=== PATIENT | female | born 2000 | race Caucasian/White ===

== ENCOUNTER 2021-08-27 19:40 | Emergency (ER) | payer OTHER, SELFPAY ==
[2021-08-27] VITALS (10 sets, daily range): BP systolic 137–158; BP diastolic 78–99; PULSE 93–116; RESP 16–27; TEMP 36.8; O2SAT 97–100
--- NOTE | 2021-08-27 19:47 | DI.RAD.S_ITS ---
PROCEDURE: XR CHEST 1V INDICATIONS: chest pain TECHNIQUE: One view of the chest was acquired. COMPARISON: None. FINDINGS: Surgical changes and devices: None. Lungs and pleura: Lungs are clear. No pleural effusions or pneumothorax. Mediastinum: Mediastinal contours appear normal. Heart size is normal. Bones and chest wall: No suspicious bony lesions. Overlying soft tissues appear unremarkable. IMPRESSION: No acute cardiopulmonary pathology. Dictated by: Richard Carlos M.D. on 08/27/2021 at 19:57 Approved by: Richard Carlos M.D. on 08/27/2021 at 19:57
[2021-08-27 20:35] LABS: Add Manual Diff / Slide Review NO; Basophils Absolute Auto 100 /uL (0-100); Basophils Percent Auto 0.5 % (0-2); Eosinophils Absolute Auto 200 /uL (0-450); Eosinophils Percent Auto 1.5 % (2-4); Hematocrit 39.7 % (36-46); Hemoglobin 14.1 g/dL (12.0-16.0); Lymphocytes Absolute Auto 2700 /uL (1100-4500); Lymphocytes Percent Auto 23.5 % (25-40); Mean Corpuscular HGB Conc 35.5 % (30-36); Mean Corpuscular Hemoglobin 27.4 PG (26-34); Mean Corpuscular Volume 77.2 fL (80-100); Monocytes Absolute Auto 800 /uL (0-900); Monocytes Percent Auto 7.3 % (3-14); Neutrophils Absolute Auto 7600 /uL (1500-7000); Neutrophils Percent Auto 67.2 % (50-75); Platelet Count 419 X10^3/uL (150-400); Red Blood Cell Count 5.14 X10^6/uL (4.0-5.2); Red Cell Distribution Width 14.3 % (11.6-14.8); White Blood Cell Count 11.4 X10^3/uL (4.5-11.0)
[2021-08-27 20:48] LABS: Alanine Aminotransferase 41 IU/L (<35); Albumin 4.8 g/dL (3.5-5.0); Albumin Globulin Ratio 1.4 (1.0-2.8); Alkaline Phosphatase 64 U/L (38-126); Aspartate Aminotransferase 34 IU/L (14-36); BUN Creatinine Ratio 14.7 (6-22); Bilirubin Total 0.6 mg/dL (0.2-1.3); Blood Urea Nitrogen 10 mg/dL (7-17); Calcium 9.5 mg/dL (8.4-10.2); Carbon Dioxide 27 mmol/L (22-32); Chloride 103 mmol/L (98-107); Creatine Kinase 87 U/L (30-135); Estimated Glomerular Filt Rate > 60 mL/min (>60); Globulin 3.4 g/dL (1.7-4.1); Glucose 105 mg/dL (70-100); HEMOLYSIS < 15 (0-50); Lipase 127 U/L (23-300); Sodium 138 mmol/L (137-145); Total Protein 8.2 g/dL (6.3-8.2)
[2021-08-27 20:59] LABS: Troponin I < 0.012 ng/mL (0.01-0.034)
[2021-08-27] MEDS: SODIUM CHLORIDE 0.9% 1,000 ML 1000 ML IV ×2 (21:25→23:41)
--- NOTE | 2021-08-27 22:21 | ED.GENADULT ---
HPI - General Adult General Chief complaint: Syncope Stated complaint: Passed out, feeling light headed Time Seen by Provider: 08/27/21 21:01 Source: patient Mode of arrival: Ambulatory History of Present Illness HPI narrative: 21-year-old woman with a history of hypertension has been having self-described random dizzy spells over the last 2 days. She has had no fevers, cough, chills, abdominal pain, vomiting, diarrhea. These are not associated with vision changes or headache. She notes that she does have an abscessed wisdom tooth and that is been causing her some pain but she has been able to eat and drink normally. This afternoon she had a spell where she was particularly dizzy, she got down on the floor to make sure she did not fall and believes she had a brief syncopal episode. She describes no chest pain, palpitations no lower extremity edema. She has a baby that is 1-year-old and has just recently resumed normal menses last month does not feel was particularly heavy. Related Data Home Medications Medication Instructions Recorded Confirmed lisinopril 20 mg tablet 20 mg PO DAILY 08/27/21 08/27/21 Allergies Allergy/AdvReac Type Severity Reaction Status Date / Time No Known Drug Allergies Allergy Verified 08/27/21 19:46 Review of Systems Review of Systems Narrative: Remainder of complete review of systems is otherwise unremarkable except for that included in the HPI. Patient History Social History Smoking Status: Never smoker Smoking Status: Never smoker Exam Initial Vital Signs Initial Vital Signs: Vital Signs Temperature 98.3 F 08/27/21 19:43 Pulse Rate 116 H 08/27/21 19:43 Respiratory Rate 18 08/27/21 19:43 Blood Pressure 155/99 H 08/27/21 19:43 Pulse Oximetry 99 08/27/21 19:43 Oxygen Delivery Method 08/27/21 19:43 General: Healthy appearing, in no acute distress. Able to give a complete and coherent history. Well-nourished well-developed. Tachycardic at rest with heart rate 108 laying flat and going up to 140 simply standing up. HEENT: Moist mucous membranes, normal sclera with reactive pupils, Neck: No JVD, supple Respiratory: Lungs are clear to auscultation, no wheezing no rales no rhonchi. Full and symmetrical air movement Cardiac: Mild tachycardia with otherwise Regular rate and rhythm no murmurs no bruits Abdomen: Soft, nontender, good bowel tones, no flank pain Skin: Warm and dry, no rashes Neurologic: Grossly neurologically intact with no obvious asymmetries or abnormalities Extremities: No trauma, well perfused Psych: Cooperative, appropriate insight and affect Course Orders Ordered: ED Orders 08/27/21 19:47 XR chest 1V Stat EKG-12 Lead Stat 08/27/21 20:18 Complete Blood Count AUTO DIFF Stat Comprehensive Metabolic Panel Stat Lipase Stat Magnesium Stat Troponin & CK Cardiac Panel Stat Discontinued Medications Sodium Chloride (Normal Saline 0.9%) 1,000 mls @ 1,000 mls/hr IV BOLUS ONE Stop: 08/27/21 22:01 Last Infusion: 08/27/21 23:41 Dose: 0 mls/hr Documented By: Admin: 08/27/21 21:25 Dose: 1,000 mls/hr Documented By: OLEG Sodium Chloride (Normal Saline 0.9%) 1,000 mls @ 1,000 mls/hr IV BOLUS ONE Stop: 08/27/21 23:29 Last Admin: 08/27/21 23:41 Dose: 1,000 mls/hr Documented By: JERRICA Vital Signs Vital signs: Vital Signs - 8 hr 08/27/21 19:43 08/27/21 20:39 08/27/21 20:40 Temperature 98.3 F Pulse Rate 116 H 98 H 93 H Respiratory Rate 18 18 Blood Pressure 155/99 H Pulse Oximetry 99 98 98 Oxygen Delivery Method Room Air 08/27/21 20:41 Temperature Pulse Rate Respiratory Rate Blood Pressure 145/85 H Pulse Oximetry Oxygen Delivery Method Medical Decision Making Lab Data Result diagrams: 08/27/21 20:18 08/27/21 20:18 Labs: Lab Results 08/27/21 08/27/21 Range/Units 20:18 20:18 WBC 11.4 H (4.5-11.0) X10^3/uL RBC 5.14 (4.0-5.2) X10^6/uL Hgb 14.1 (12.0-16.0) g/dL Hct 39.7 (36-46) % MCV 77.2 L (80-100) fL MCH 27.4 (26-34) PG MCHC 35.5 (30-36) % RDW 14.3 (11.6-14.8) % Plt Count 419 H (150-400) X10^3/uL Neut % (Auto) 67.2 (50-75) % Lymph % (Auto) 23.5 L (25-40) % [place] % (Auto) 7.3 (3-14) % Eos % (Auto) 1.5 L (2-4) % Baso % (Auto) 0.5 (0-2) % Neut # (Auto) 7600 H (9288-6097) /uL Lymph # (Auto) 2700 (0839-6984) /uL [place] # (Auto) 800 (0-900) /uL Eos # (Auto) 200 (0-450) /uL Baso # (Auto) 100 (0-100) /uL Sodium 138 (137-145) mmol/L Potassium 4.0 (3.4-5.1) mmol/L Chloride 103 (98-107) mmol/L Carbon Dioxide 27 (22-32) mmol/L BUN 10 (7-17) mg/dL Creatinine 0.68 (0.52-1.04) mg/dL Estimated GFR > 60 (>60) mL/min BUN/Creatinine Ratio 14.7 (6-22) Glucose 105 H (70-100) mg/dL Calcium 9.5 (8.4-10.2) mg/dL Magnesium 2.0 (1.6-2.3) mg/dL Total Bilirubin 0.6 (0.2-1.3) mg/dL AST 34 (14-36) IU/L ALT 41 H (<35) IU/L Alkaline Phosphatase 64 (38-126) U/L Total Creatine Kinase 87 (30-135) U/L CK-MB (CK-2) TNP CK-MB (CK-2) Rel Index TNP Troponin I < 0.012 (0.01-0.034) ng/mL Total Protein 8.2 (6.3-8.2) g/dL Albumin 4.8 (3.5-5.0) g/dL Globulin 3.4 (1.7-4.1) g/dL Albumin/Globulin Ratio 1.4 (1.0-2.8) Lipase 127 (23-300) U/L Point of Care Testing Test Results Negative Urine Dip Bedside Urine Glucose Negative Bedside Urine Bilirubin - Negative Bedside Urine Ketone - Negative Urine Specific [place] 1.005 Bedside Urine Occult Blood - Negative Bedside Urine pH 7.0 Bedside Urine Protein - Negative Bedside Urine Urobilinogen - Negative Bedside Urine Nitrite - Negative Bedside Urine Leukocytes - Negative Esterase Point of care testing: Point of Care Testing Test Results Negative Urine Dip Bedside Urine Glucose Negative Bedside Urine Bilirubin - Negative Bedside Urine Ketone - Negative Urine Specific [place] 1.005 Bedside Urine Occult Blood - Negative Bedside Urine pH 7.0 Bedside Urine Protein - Negative Bedside Urine Urobilinogen - Negative Bedside Urine Nitrite - Negative Bedside Urine Leukocytes - Negative Esterase MDM Narrative Medical decision making narrative: 21-year-old woman with orthostatic hypotension uncertain etiology. She has not had any obvious significant losses and has been eating and drinking. No obvious clinical signs of infection. Lab work is reassuring without evidence of significant anemia or kidney dysfunction. She feel significantly better after 2 L fluid. At this point I do not suspect sepsis, COVID, , cardiac syncope, acute coronary syndrome, intra-abdominal infection. All of this is reviewed with her and at this time she is safe for home discharge. Encouraged her to continue making sure she is drinking plenty of fluids on a regular basis. Discharge Plan Departure Patient Disposition: Home Clinical Impression: Syncope due to orthostatic hypotension Instructions: DI for Syncope in Adults (Fainting), DI for Dehydration -- Adult Activity Restrictions/Additional Instructions: Thank you for coming in this evening You seem have significant change in heart rate and blood pressure going from lying down to standing up. We frequently see this in people who were significantly dehydrated. You have improved significantly with 2 L of fluid. I do not see any signs of severe dehydration or kidney dysfunction. There is no evidence of acute bacterial infection.. You are not . At this time, I would recommend that you make a point of drinking plenty of fluid, he should be drinking enough fluid that your not dizzy when your standing up and your urine is light yellow in color. If you find that you are getting worse or develop any new symptoms, please feel free to return to the emergency department for further evaluation. Prescriptions: No Action lisinopril 20 mg Tablet 20 mg PO DAILY
[2021-08-28] VITALS: BP 122/76; PULSE 96; RESP 19; O2SAT 98
== END 2021-08-28 00:49 | disposition home or self-care (01) ==
PROVIDERS: Emergency Provider Emergency Medicine
DX: I95.1 Orthostatic hypotension (principal); R07.9 Chest pain, unspecified
CPT/HCPCS: 36415; 71045; 80053; 81003; 81025; 82550; 83690; 83735; 84484; 85025; 93005; 93010; 96360; 96361; 99284